=== PATIENT | male | born 1945 | race Two or more races ===

== ENCOUNTER 2018-09-03 14:36 | Emergency (ER) | payer MEDICARE, OTHER ==
[~2018-09-03] VITALS: Ht 177.8 cm; Wt 77.1 kg
[2018-09-03 14:46] VITALS: BP 111/66
[2018-09-03] MEDS ORDERED: TETANUS-DIPTH-ACEL PERTUSSIS 0.5ML SYRG IM ONE (15:00)
[2018-09-03] MEDS ORDERED: BACITRACIN-POLYMYXIN B TOPICAL OINT UD TOP ONE ×2 (15:29→15:30)
== END 2018-09-03 15:46 | disposition home or self-care (01) ==
LOC: ER 14:38
DX: S61.011A Laceration without foreign body of right thumb without damage to nail, initial encounter (principal); E78.5 Hyperlipidemia, unspecified; Z95.1 Presence of aortocoronary bypass graft; Z98.61 Coronary angioplasty status; W22.8XXA Striking against or struck by other objects, initial encounter; Y93.89 Activity, other specified; Y92.812 Truck as the place of occurrence of the external cause; Y99.8 Other external cause status
CPT/HCPCS: 12002; 73140; 90471; 90715

== ENCOUNTER 2018-09-14 10:41 | Emergency (ER) | payer MEDICARE, OTHER ==
[~2018-09-14] VITALS: Ht 177.8 cm; Wt 81.6 kg
[2018-09-14 10:57] VITALS: BP 114/62
== END 2018-09-14 11:49 | disposition home or self-care (01) ==
LOC: ER 10:41
DX: S61.011D Laceration without foreign body of right thumb without damage to nail, subsequent encounter (principal); I25.10 Atherosclerotic heart disease of native coronary artery without angina pectoris; E78.5 Hyperlipidemia, unspecified; Z95.1 Presence of aortocoronary bypass graft; W26.8XXD Contact with other sharp object(s), not elsewhere classified, subsequent encounter